=== PATIENT | female | born 1985 | race Caucasian/White ===

== ENCOUNTER 2021-03-23 22:07 | Emergency (ER) | payer OTHER, SELFPAY ==
[2021-03-23 22:08] VITALS: BP 138/104; PULSE 110; RESP 16; TEMP 36.4; O2SAT 97; BMI 20.5
--- NOTE | 2021-03-23 22:26 | US_ITS ---
STUDY: ULTRASOUND OF THE FEMALE PELVIS - COMPLETE REASON FOR EXAM: Female, 36 years old. Pain after intercourse. LMP: 03/14/2021. TECHNIQUE: Transabdominal. COMPARISON: None. FINDINGS: Normal uterine size measuring 8.2 x 4.2 x 2.9 cm. There are no myometrial masses. Normal endometrial thickness measuring 4 mm. There are no endometrial masses, and there is no fluid in the endometrial cavity. IUD in place. Appropriately located in the fundal endometrium. Normal uterine cervix. Normal right ovary, measuring 3.4 x 3.6 x 2.1 cm. Physiologic cysts, no concerning mass. Appropriate Doppler flow. 1.5 cm right paraovarian cyst, anatomic variant. Normal left ovary, measuring 2.9 x 1.9 x 1.8 cm. Physiologic cysts, no concerning mass. Appropriate Doppler flow. There is no free fluid in the pelvis. US/Pelvic (Non ) IMPRESSION: Normal ultrasound appearance of the uterus and ovaries. IUD in place. Electronically Signed: Dorian Smiley MD at 0:42 EDT Tel , Service support ,
--- NOTE | 2021-03-23 22:28 | EX.ED.DYSGE1 ---
HPI History of Present Illness Chief Complaint: Abd Pain Informant: patient Narrative Narrative: Patient had sudden onset of pelvic pain during sexual intercourse. She had felt perfectly fine prior to this. She had not been having any symptoms. This has been going on for about an hour or so. She has never had any bleeding at any time. She does have a Mirena ring in place. She does not have any known history of ovarian cyst. Does not think she is . Denies any abdominal or pelvic surgeries. Moving or pressing on the area makes it worse. Staying still makes it a little better. No chronic medical conditions No routine medications No allergies Prior surgeries her tonsils but no abdominal surgery PFSH PFSH Medical History IUD (intrauterine device) in place Allergy/AdvReac Type Severity Reaction Status Date / Time No Known Allergies Allergy Verified 03/23/21 22:10 Surgical History History of tonsillectomy Social History Smoking Status: Current every day smoker tobacco type: cigarettes ROS ROS ED Constitutional Constitutional ED: Denies chills, fever(s) or sweats ENT ENT ED: Denies sore throat Cardiovascular Cardiovascular: Denies chest pain or palpitations Respiratory/Chest Respiratory/Chest: Denies cough or dyspnea Gastrointestinal Gastrointestinal: Reports abdominal pain; Denies constipation, diarrhea, melena, nausea or vomiting Genitourinary Genitourinary ED: Reports other Details: See history of present illness. ; Denies dysuria, hematuria or urinary frequency Musculoskeletal Musculoskeletal: Denies back pain Integumentary Denies abscess or rash Neurologic Neurologic: Denies paresthesias or weakness Psychiatric Psychiatric: Denies anxiety EXAM Physical Exam Const Vital Signs: 03/23/21 22:08 Temperature 97.6 F L Temperature Source Temporal Pulse Rate 110 H Respiratory Rate 16 Blood Pressure 138/104 H Blood Pressure Mean 115 Pulse Ox 97 Oxygen Delivery Method Room Air Positive well nourished and well developed General Appearance ED: well developed; Negative for pallor HEENT Negative for trauma or tenderness Eyes Negative for PERRL Resp normal respiratory effort and clear to auscultation bilaterally Cardio regular rate and regular rhythm GI normal to inspection, nondistended, normoactive bowel sounds GI Narrative: Patient does have low pelvic tenderness just above the pubic symphysis. It seemed to be maybe slightly more on the right than the left but not markedly so. No rebound or guarding. No tenderness with palpation anywhere else in the abdomen. Palpation: soft Narrative: Patient did not want to have a pelvic exam. Back/Spine no CVA tenderness Extremity normal to inspection General Extremety ED: Negative for tenderness Neuro oriented x3 Sensorium / Orientation: alert Psych mental status grossly normal Skin no rashes or lesions noted General Skin Exam: Negative for pallor MDM MDM MDM Narrative Medical decision making narrative: Patient's is negative. Ultrasound shows no acute process. Her IUD is in place. Patient's been very comfortable. She is resting in the bed right now. She is comfortable going home. She did not want a pelvic exam. I explained she should return with any worsening pain, bleeding, fevers chills or other concerns. Lab Data Labs: Laboratory Results - last 24 hr 03/23/21 22:38 Serum , Qual NEGATIVE Radiography Diagnostic Testing: Radiology Impression Pelvis Ultrasound 03/23/21 22:26 IMPRESSION: Normal ultrasound appearance of the uterus and ovaries. IUD in place. Electronically Signed: Dorian Smiley MD at 0:42 EDT Tel , Service support , Discharge Plan Triage Chief Complaint: Abd Pain ED Provider: Aaron Sol Dx/Rx/DC Orders Clinical Impression: Pelvic pain Instructions: ED Pelvic Pain, Unknown Cause Primary Care Provider: Care Physician,No Primary Referrals: Rea Ji MD [STAFF PHYSICIAN] - 3-5 Days if not improving Care Physician,No Primary [Primary Care Provider] - Disposition Disposition: Home, Self Care
[2021-03-23] MEDS: Ketorolac 15 MG/ML Vial IV (22:41)
[2021-03-23 22:57] LABS: Internal QC Validated? YES +Cl - CLEAR BKGD
[2021-03-23 22:58] LABS: Pregnancy, Serum, hCG Quali. NEGATIVE Negative
--- NOTE | 2021-03-24 02:32 | ED.RN ---
Pt left before getting D/C instructions or before IV was taken out. This nurse called pt. Pt stated It is still in my arm and I was sick of waiting on you guys Explained to pt that it needs to come out. Pt stating she was not coming back and would come back in the AM before work. Then pt hung up on staff. Attempted to call again but no answer.
--- NOTE | 2021-03-24 03:10 | ED.RN ---
[facility] went to residence patient did not answer the door. left message on patients phone
== END 2021-03-24 02:07 | disposition home or self-care (01) ==
PROVIDERS: Emergency Provider Emergency Medicine
DX: R10.2 Pelvic and perineal pain (principal); F17.210 Nicotine dependence, cigarettes, uncomplicated; Z97.5 Presence of (intrauterine) contraceptive device
CPT/HCPCS: 76856; 84703; 93976; 96374; 99283; A4216

== ENCOUNTER → 2024-10-25 | Outpatient (CLI) | payer BC, SELFPAY ==
[2024-10-25 12:21] LABS: Absolute Lymphocyte Count 2.06 X10^3/uL (0.83-4.51); Basophil# 0.06 X10^3/uL; Basophil% 0.9 % (0-1); Eosinophils% 1.5 % (0-5); Hematocrit 41.6 % (37-47); Hemoglobin 13.8 g/dL (12.0-15.0); Lymphocyte # 2.06 X10^3/ul (0.83-4.51); Lymphocyte % 30.7 % (19-41); Mean Corp Hgb Conc 33.2 g/dL (32-36); Mean Corpuscular Hgb 31.2 pg (27.0-32.0); Mean Corpuscular Volume 94.1 fL (81-99); Mean Platelet Vol. 10.3 fl (6.2-12.0); Monocyte# 0.46 X10^3/uL; Monocyte% 6.9 % (0-10); NRBC Flagged by Analyzer 0 % (0-5); Neutrophil % 59.7 % (47-70); Platelet Count 333 K/mm3 (150-450); RBC Distribution Width CV 12.1 % (11.6-14.6); Red Blood Count 4.42 M/mm3 (4.2-5.4); White Blood Count 6.7 K/mm3 (4.4-11.0)
[2024-10-25 13:04] LABS: ALB/GLOB Ratio 1.4 RATIO (0.9-2.4); AST(SGOT) 22 U/L (<=31); Alanine Aminotransfer ALT/SGPT 20 U/L (<=34); Albumin, Serum 4.6 g/dL (3.5-5.0); Alkaline Phosphatase 63 U/L (35-104); Anion Gap 12 (5-15); BUN 14 mg/dL (4-19); BUN/Creat Ratio 16.3 RATIO (10-20); Calcium,Total 9.9 mg/dL (7.6-11.0); Carbon Dioxide 22.1 mmol/L (21.0-32.0); Chloride 102 mmol/L (98-108); Creatinine, Serum 0.87 mg/dL (0.70-1.20); EST Glomerular Filtration Rate 86 (>60); Ferritin 196 ng/mL (22-378); Globulin 3.2 g/dL (2.2-4.2); Glucose 91 mg/dL (70-99); Iron 72 ug/dL (50-170); Iron Binding Capacity,Total 311 ug/dL (250-450); Iron Binding Capacity,Unsat 239 ug/dL (228-428); Potassium 4.4 mmol/L (3.3-5.1); Protein, Total 7.8 g/dL (5.9-8.4); Sodium Level 137 mmol/L (133-145); Total Bilirubin 0.39 mg/dL (0.00-1.30)
== END | disposition home or self-care (01) ==
LOC: MFPLAB 09:50
PROVIDERS: PCP Family Medicine; Referring Provider Family Medicine; Visit Provider Family Medicine
DX: K62.5 Hemorrhage of anus and rectum (principal)
CPT/HCPCS: 36415; 80053; 82728; 83540; 83550; 85025